=== PATIENT | female | born 1990 | race Caucasian/White ===

== ENCOUNTER 2021-04-29 23:54 | Emergency (ER) | payer MEDICAID, OTHER ==
[~2021-04-29] VITALS: Ht 154.9 cm; Wt 56.7 kg
[2021-04-30] VITALS: BP_SYST 104
--- NOTE | 2021-04-30 | NUR ---
Patient to ER CHAIR to gown for evaluation. Side rails up. Report given to ROXANNE GILMORE.
--- NOTE | 2021-04-30 00:10 | NUR ---
DR. JIMENEZ AT BEDSIDE FOR EVALUATION.
--- NOTE | 2021-04-30 00:16 | NUR ---
PATIENT [id number] AND AMBULATORY BIB [facility] FOR "OK TO BOOK". PATIENT DENIES ANY SOB, CHEST PAIN, N/V/D, REMAINS AFEBRILE. VSS.
[2021-04-30 00:20] VITALS: BP_SYST 104
--- NOTE | 2021-04-30 00:20 | NUR ---
[facility] DINING ROOM HELPER given written and verbal discharge instructions and verbalizes understanding. DR. TONY CHEN MD discussed with patient the results and treatment provided. Patient in stable condition. ID arm band removed. Patient educated on pain management and to follow up with PMD. Pain Scale 0/10. Opportunity for questions provided and answered. Medication side effect fact sheet provided. PATIENT TAKEN INTO CUSTODY FOR OK TO BOOK.
== END 2021-04-30 00:20 ==
LOC: SED 23:54
DX: Z02.89 Encounter for other administrative examinations (principal)

== ENCOUNTER 2022-11-30 12:54 | Emergency (ER) | payer MEDICAID ==
[~2022-11-30] VITALS: Ht 154.9 cm; Wt 65.8 kg
[2022-11-30 13:06] VITALS: BP_SYST 107
[2022-11-30] MEDS ORDERED: busPIRone HCL 5 MG TABLET PO ONE (13:15)
[2022-11-30 13:22] VITALS: BP_SYST 115
== END 2022-11-30 14:00 | disposition left against medical advice (07) ==
LOC: SED 12:54
DX: F41.0 Panic disorder [episodic paroxysmal anxiety] (principal); R06.02 Shortness of breath; J45.909 Unspecified asthma, uncomplicated; Z79.899 Other long term (current) drug therapy
CPT/HCPCS: 99283